=== PATIENT | female | born 1975 | race Caucasian/White ===

== ENCOUNTER 2023-02-10 13:07 | Outpatient (REF) | payer BC, SELFPAY ==
[2023-02-10 15:43] LABS: ALT 34 U/L (14-59); AST 24 U/L (15-37); Albumin 4.2 g/dL (3.4-5.0); Alkaline Phosphatase 81 U/L (46-116); Anion Gap 10.5 mmol/L (3-11); BUN 13 mg/dL (7-18); Bilirubin, Total 0.7 mg/dL (0.2-1.0); CO2 27.5 mmol/L (21.0-32.0); CREATININE 0.7 mg/dL (0.55-1.02); Calcium 9.7 mg/dL (8.5-10.1); Calculated LDL 126 mg/dL (<100); Chloride 102 mmol/L (98-107); Cholesterol 212 mg/dL (<200); Estimated GFR 106.62 (mL/min/1.73m2); Glucose 99 mg/dL (74-106); HDL Cholesterol 49 mg/dL (40-60); Potassium 4.5 mmol/L (3.5-5.1); Sodium 140 mmol/L (136-145); Total Protein 8.3 g/dL (6.4-8.2); Triglyceride 186 mg/dL (<150)
== END 2023-02-10 13:08 | disposition home or self-care (01) ==
LOC: NCHCN 13:07
PROVIDERS: PCP Family Medicine; Visit Provider Family Medicine
DX: I10 Essential (primary) hypertension (principal); E66.9 Obesity, unspecified
CPT/HCPCS: 80053; 80061

== ENCOUNTER 2023-03-09 10:43 | Outpatient (REF) | payer BC, SELFPAY ==
[2023-03-09 15:26] LABS: TSH (W/Ref FT4) 0.45 uIU/mL (0.36-3.74)
== END 2023-03-09 10:44 | disposition home or self-care (01) ==
LOC: NCHCN 10:43
PROVIDERS: PCP Family Medicine; Visit Provider Family Medicine
DX: F32.9 Major depressive disorder, single episode, unspecified (principal); E66.9 Obesity, unspecified
CPT/HCPCS: 84443

== ENCOUNTER 2023-03-24 20:58 | Outpatient (REF) | payer BC, SELFPAY | END 2023-03-24 20:59 | disposition home or self-care (01) | LOC: LBN 20:58 | PROVIDERS: PCP Family Medicine; Visit Provider Physician Assistant Medical | DX: J02.9 Acute pharyngitis, unspecified (principal) | CPT/HCPCS: 87070 ==

== ENCOUNTER → 2023-05-10 00:03 | Outpatient (CLI) | payer BC, SELFPAY ==
--- NOTE | 2023-05-10 07:26 | DI.US_ITS ---
Exam(s) US NEEDLE LOCAL OTHER WO RAD EXAM: US NEEDLE LOCAL OTHER WO RAD CLINICAL HISTORY: LT thyroid nodule,TR4,E04.1, ULTRASOUND GUIDED BX. COMPARISON: US US THYROID from 04/05/2023 TECHNIQUE: Ultrasound was provided for guidance with thyroid nodule biopsy. FINDINGS: Please see procedure note for details. DATA REPOSITORY:
--- NOTE | 2023-05-10 12:30 | PAPNONF_PTH ---
PATIENT: Emeli Noguera LOC: [facility] U#:[id number] AGE/SX: 49/F ROOM: RE05/10/[address]: Citlalli Larkin : 1975 BED: DIS: SPEC #: [id number] RECD: 05/10/23 13:00 STATUS: STEVE WORLEY #: [id number] KATE: 05/10/23 12:[address]: Citlalli Larkin DEPT: FORMERLY [facility], 1928–1983 Cytology RECD BY: Deepika Jimenez ENTERED: 05/10/23 13:02 SP TYPE: PAPTOPHERF SEJAL DR: Kimberly Mullen Tissues: 1 - BODY FLUID CYTO-FINE NEEDLE [facility] Procedures: BODY FLUID CYTO-FINE NEEDLE ASPIRATE-[facility] Comments: [id number] (PATH FNA CONSULT) (REFRIGERATED)
--- NOTE | 2023-05-10 12:57 | OPPNE_ITS ---
Date of service: 05/10/23 Time of Service: 12:57 Procedure Note Date of procedure: 05/10/23 Procedure: Left thyroid nodule ultrasound-guided FNA, pathology present Procedure Diagnosis: Left TR 4 thyroid nodule 2.5 cm diameter Procedure Indications: Patient with the above problems. Options were explained to the patient regarding further management. She elected to undergo the above procedure. Consent was filled out and signed prior to procedure. Procedure Description: The patient was positioned in a supine position with her neck slightly extended. Ultrasound was used to localize the thyroid nodule after the patient was prepped and draped in appropriate fashion. 1% lidocaine with 1/100,000 epinephrine was used to anesthetize the skin and subcutaneous tissues overlying the thyroid nodule. A 25-gauge needle was then passed repeatedly into the thyroid nodule, and the specimen handed to pathology who verified adequate cellularity. 2 additional passes were made for potential Afirma testing. A sterile dressing was then applied to the wound after ensuring adequate hemostasis. The patient was allowed to sit and then stand. Her vital signs r emained stable. She tolerated the procedure well. She will remove the bandage today and not replace it. She will call with any signs of infection. She will use ibuprofen or Tylenol for any discomfort. She will call if she does not hear from us within 1 week with regard to pathology results. She had no further questions. She is comfortable with the plan.
== END ==
PROVIDERS: PCP Family Medicine; Visit Provider Registered Nurse Maternal Newborn
DX: E04.1 Nontoxic single thyroid nodule (principal)
CPT/HCPCS: 10005; 76942; 88104

== ENCOUNTER 2023-05-17 19:38 | Outpatient (CLI) | payer BC, SELFPAY ==
[2023-05-19 09:44] LABS: Thyroglobulin Antibody 20 U/mL (<=60); Thyroperoxidase Antibody 31 U/mL (<=60)
== END 2023-05-17 19:39 | disposition home or self-care (01) ==
LOC: LBO 19:38
PROVIDERS: PCP Family Medicine; Visit Provider Registered Nurse Maternal Newborn
DX: E66.9 Obesity, unspecified (principal); L85.3 Xerosis cutis; R53.83 Other fatigue
CPT/HCPCS: 36415; 86376; 84481

== ENCOUNTER 2023-11-09 14:24 | Outpatient (REF) | payer BC, SELFPAY ==
[2023-11-09 15:43] LABS: Abs Immature Grans 0.01 10^3/uL (0.0-0.06); Absolute Basophil Count 0.09 10^3/uL (0.0-0.2); Absolute Lymphocyte Count 1.99 10^3/uL (1.2-3.4); Absolute Monocyte Count 0.66 10^3/uL (0.1-0.8); Absolute Neutrophil Count 3.73 10^3/uL (1.2-6.7); Basophils % 1.3; HCT 39.1 % (36.0-46.0); HGB 13.5 g/dL (11.2-15.7); Immature Grans % 0.1; Lymphocytes % 29.8; MCH 30.9 pg (27.0-33.0); MCHC 34.5 % (32.0-36.0); MCV 90 fL (80-95); MPV 10.1 fL (8.0-11.0); Monocytes % 9.9; Neutrophils % 55.9; Platelet Count 468 10^3/uL (130-400); RBC 4.37 10^6/uL (3.93-5.22); RDW 12.2 % (11.7-14.6); RDW-SD 39.8 fL; WBC 6.68 10^3/uL (4.4-10.8)
[2023-11-09 16:01] LABS: ALT 37 U/L (14-59); AST 27 U/L (15-37); Albumin 3.9 g/dL (3.4-5.0); Alkaline Phosphatase 82 U/L (46-116); Anion Gap 8.3 mmol/L (3-11); BUN 14 mg/dL (7-18); Bilirubin, Total 0.4 mg/dL (0.2-1.0); C-Reactive Protein < 0.50 mg/dL (<or=0.5); CO2 27.7 mmol/L (21.0-32.0); CREATININE 0.6 mg/dL (0.55-1.02); Calcium 9.1 mg/dL (8.5-10.1); Chloride 104 mmol/L (98-107); Estimated GFR 109.96 (mL/min/1.73m2); Glucose 86 mg/dL (74-106); Magnesium 2.2 mg/dL (1.8-2.4); Potassium 4.3 mmol/L (3.5-5.1); Sodium 140 mmol/L (136-145); Total Protein 7.8 g/dL (6.4-8.2)
== END 2023-11-09 14:25 | disposition home or self-care (01) ==
LOC: NCHCN 14:24
PROVIDERS: PCP Family Medicine; Visit Provider Family Medicine
DX: R51.9 Headache, unspecified (principal)
CPT/HCPCS: 80053; 83735; 85025; 86140

== ENCOUNTER 2023-12-21 16:11 | Outpatient (REF) | payer BC, SELFPAY ==
[2023-12-22 23:01] LABS: Campylobacter PCR Negative (Negative); Salmonella PCR Negative (Negative); Shiga Toxin PCR Negative (Negative); Shigella/Enteroinvasive Ecoli Negative (Negative)
== END 2023-12-21 16:12 | disposition home or self-care (01) ==
LOC: LBN 16:11
PROVIDERS: PCP Family Medicine; Visit Provider Physician Assistant Medical
DX: R19.7 Diarrhea, unspecified (principal)
CPT/HCPCS: 87329; 87493; 87505; 87177

== ENCOUNTER 2024-01-05 16:58 | Outpatient (REF) | payer BC, SELFPAY ==
[2024-01-05 21:03] LABS: Abs Immature Grans 0.02 10^3/uL (0.0-0.06); Absolute Basophil Count 0.08 10^3/uL (0.0-0.2); Absolute Eosinophil Count 0.21 10^3/uL (0.0-0.7); Absolute Monocyte Count 0.91 10^3/uL (0.1-0.8); Absolute Neutrophil Count 5.26 10^3/uL (1.2-6.7); Eosinophils % 2.5 %; HCT 34.5 % (36.0-46.0); HGB 11.5 g/dL (11.2-15.7); Immature Grans % 0.2 %; Lymphocytes % 22.7 %; MCH 30.3 pg (27.0-33.0); MCHC 33.3 % (32.0-36.0); MCV 91 fL (80-95); Monocytes % 10.9 %; Neutrophils % 62.7 %; RBC 3.79 10^6/uL (3.93-5.22); RDW 12.1 % (11.7-14.6); RDW-SD 40.2 fL; WBC 8.38 10^3/uL (4.4-10.8)
[2024-01-05 21:25] LABS: ALT 34 U/L (14-59); AST 24 U/L (15-37); Albumin 3.8 g/dL (3.4-5.0); Alkaline Phosphatase 78 U/L (46-116); Anion Gap 10.2 mmol/L (3-11); BUN 14 mg/dL (7-18); Bilirubin, Total 0.2 mg/dL (0.2-1.0); CO2 25.8 mmol/L (21.0-32.0); CREATININE 0.8 mg/dL (0.55-1.02); Calcium 9.2 mg/dL (8.5-10.1); Chloride 103 mmol/L (98-107); Estimated GFR 90.27 (mL/min/1.73m2); Glucose 116 mg/dL (74-106); Potassium 3.7 mmol/L (3.5-5.1); Sodium 139 mmol/L (136-145); Total Protein 7.9 g/dL (6.4-8.2)
== END 2024-01-05 16:59 | disposition home or self-care (01) ==
LOC: NCHCN 16:58
PROVIDERS: PCP Family Medicine; Visit Provider Family Medicine
DX: R10.9 Unspecified abdominal pain (principal)
CPT/HCPCS: 80053; 85025

== ENCOUNTER 2024-03-30 14:42 | Outpatient (REF) | payer BC, SELFPAY | END 2024-03-30 14:43 | disposition home or self-care (01) | LOC: NCHCN 14:42 | PROVIDERS: PCP Family Medicine; Visit Provider Family Medicine | DX: J18.9 Pneumonia, unspecified organism (principal) | CPT/HCPCS: 87077; 87070 ==

== ENCOUNTER 2024-06-05 18:20 | Outpatient (CLI) | payer BC, SELFPAY ==
--- NOTE | 2024-06-05 | DI.RAD_ITS ---
Exam(s) XR CHEST 2V PA LATERAL EXAM: XR CHEST 2V PA LATERAL CLINICAL HISTORY: cough x 4 days, fever in last 48 hours. TECHNIQUE: 2D digital imaging was performed. COMPARISON: No exams were available for comparison FINDINGS: 2 views: Heart size is normal. The mediastinum is not widened. Lungs are clear. No infiltrates nor pleural effusions. IMPRESSION: No acute pulmonary findings. Incidentally noted are air-filled bowel loops subjacent to the left hemidiaphragm. DATA REPOSITORY: RADIATION DOSE DELIVERED:
== END 2024-06-05 18:40 ==
LOC: DI 18:23
PROVIDERS: PCP Family Medicine; Visit Provider Nurse Practitioner Family
DX: R05.9 Cough, unspecified (principal)
CPT/HCPCS: 71046

== ENCOUNTER 2024-06-05 22:05 | Outpatient (REF) | payer BC, SELFPAY | END 2024-06-05 22:06 | disposition home or self-care (01) | LOC: LBN 22:05 | PROVIDERS: PCP Family Medicine; Visit Provider Nurse Practitioner Family | DX: J02.9 Acute pharyngitis, unspecified (principal); R05.9 Cough, unspecified | CPT/HCPCS: 87077; 87070 ==

== ENCOUNTER 2024-10-18 09:18 | Outpatient (REF) | payer BC, SELFPAY ==
[2024-10-18 15:14] LABS: Abs Immature Grans 0.01 10^3/uL (0.0-0.06); Absolute Eosinophil Count 0.29 10^3/uL (0.0-0.7); Absolute Lymphocyte Count 1.75 10^3/uL (1.2-3.4); Absolute Monocyte Count 0.64 10^3/uL (0.1-0.8); Absolute Neutrophil Count 3.56 10^3/uL (1.2-6.7); Basophils % 1.6 %; Eosinophils % 4.6 %; HCT 37.1 % (36.0-46.0); HGB 12.5 g/dL (11.2-15.7); Immature Grans % 0.2 %; Lymphocytes % 27.6 %; MCH 30.4 pg (27.0-33.0); MCHC 33.7 % (32.0-36.0); MCV 90 fL (80-95); MPV 9.7 fL (8.0-11.0); Monocytes % 10.1 %; Neutrophils % 55.9 %; Platelet Count 482 10^3/uL (130-400); RBC 4.11 10^6/uL (3.93-5.22); RDW 12.7 % (11.7-14.6); RDW-SD 41.5 fL; WBC 6.35 10^3/uL (4.4-10.8)
[2024-10-18 15:33] LABS: Hemoglobin A1C 5.6 % (<5.7)
[2024-10-18 16:27] LABS: ALT 34 U/L (14-59); AST 24 U/L (15-37); Alkaline Phosphatase 84 U/L (46-116); BUN 16 mg/dL (7-18); Bilirubin, Total 0.4 mg/dL (0.2-1.0); CREATININE 0.7 mg/dL (0.55-1.02); Calcium 9.8 mg/dL (8.5-10.1); Chloride 105 mmol/L (98-107); Glucose 83 mg/dL (74-106); Potassium 4.5 mmol/L (3.5-5.1); Sodium 143 mmol/L (136-145); Total Protein 7.9 g/dL (6.4-8.2)
[2024-10-18 16:36] LABS: Vitamin D 25 Total 107 ng/mL (30-100)
[2024-10-18 16:44] LABS: C-Reactive Protein < 0.50 mg/dL (<or=0.5)
[2024-10-19 12:02] LABS: Lyme Ab w Rflx to Lyme Confirm Negative (Negative)
== END 2024-10-18 09:19 | disposition home or self-care (01) ==
LOC: NCHCN 09:18
PROVIDERS: PCP Family Medicine; Visit Provider Family Medicine
DX: G43.009 Migraine without aura, not intractable, without status migrainosus (principal); M65.331 Trigger finger, right middle finger; E67.3 Hypervitaminosis D; J02.9 Acute pharyngitis, unspecified
CPT/HCPCS: 80053; 82306; 87077; 83036; 85025; 86140; 86618; 87070

== ENCOUNTER 2024-12-12 14:21 | Outpatient (REF) | payer BC, SELFPAY | END 2024-12-12 14:22 | disposition home or self-care (01) | LOC: NCHCN 14:21 | PROVIDERS: PCP Family Medicine; Visit Provider Family Medicine | DX: R89.5 Abnormal microbiological findings in specimens from other organs, systems and tissues (principal) | CPT/HCPCS: 87070 ==